=== PATIENT | male | born 1970 | race Two or more races ===

== ENCOUNTER → 2021-09-20 | Outpatient (CLI) | payer OTHER | END | disposition home or self-care (01) | LOC: XYW 08:56 | DX: S83.241A Other tear of medial meniscus, current injury, right knee, initial encounter (principal); M13.861 Other specified arthritis, right knee; M25.761 Osteophyte, right knee; X58.XXXA Exposure to other specified factors, initial encounter; Y93.89 Activity, other specified; Y92.89 Other specified places as the place of occurrence of the external cause; Y99.8 Other external cause status | CPT/HCPCS: 73700 ==

== ENCOUNTER → 2024-02-04 | Outpatient (CLI) | payer OTHER | END | disposition home or self-care (01) | LOC: XYW 11:03 → EEVIPCON 11:03 | PROVIDERS: ATTEND Internal Medicine | DX: R07.9 Chest pain, unspecified (principal) | CPT/HCPCS: 93306 ==

== ENCOUNTER → 2024-06-28 | Outpatient (CLI) | payer OTHER ==
--- NOTE | 2024-06-28 09:25 | DVH ---
CLINICAL INDICATION: 54 years old, Male; RIGHT KNEE PAIN. TECHNIQUE: Noncontrast CT of the right knee was performed. Sagittal and coronal reformatted images ar e provided. COMPARISON: None CT Dose: CTDI volume is 7.8 mGy. Dose-length product is 193.11 mGy*cm FINDINGS: No fracture or dislocation. Patient is status post anterior cruciate ligament repair. There are cylin drical lucencies in the lateral distal femur and central to medial proximal tibia compatible with oss eous tunnels. Femorotibial alignment is maintained. Patellofemoral alignment is also intact. There i s lateral patellofemoral joint space narrowing. Mild medial compartment joint space narrowing. No s ignificant joint effusion. Regional soft tissues are unremarkable aside from vascular calcifications . IMPRESSION: 1. No fracture or dislocation. 2. Mild degenerative changes in the knee. All CT scans at this medical facility are performed using dose modulation techniques as appropriate t o a performed exam including the following: Automated exposure control was utilized; adjustment of th e MA and/or KV according to patient size; and use of iterative reconstruction technique.
== END | disposition home or self-care (01) ==
LOC: EEVIPCON 08:00 → XYW 08:19
DX: M17.11 Unilateral primary osteoarthritis, right knee (principal); M25.561 Pain in right knee
CPT/HCPCS: 73700